=== PATIENT | male | born 2000 | race Two or more races ===

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

== ENCOUNTER 2022-12-13 16:23 | Emergency (ER) | payer BC, OTHER ==
[~2022-12-13] VITALS: Ht 172.7 cm; Wt 61.2 kg
[2022-12-13 16:35] VITALS: BP 121/65; TEMP 99; O2SAT 97
[2022-12-13] MEDS ORDERED: CARB15DR12 EACH EAR (17:26)
== END 2022-12-13 17:33 | disposition home or self-care (01) ==
LOC: ER 16:28
DX: H61.22 Impacted cerumen, left ear (principal)